=== PATIENT | male | born 1970 | race Caucasian/White ===

== ENCOUNTER 2020-11-26 00:33 | Inpatient (IN) | payer MEDICAID ==
[~2020-11-26] VITALS: Ht 182.9 cm; Wt 86.2 kg
[2020-11-26] MEDS ORDERED: LORazepam 2 MG/ML, 1ML ONE ×2 (00:55→01:05)
[2020-11-26] MEDS ORDERED: LORazepam 2 MG/ML, 1ML IVPush ONE ×2 (01:00→05:30)
[2020-11-26] MEDS ORDERED: SODIUM CHLORIDE FLUSH 10ML SYR IVF ONE (01:00)
[2020-11-26 01:20] LABS: BASOPHILS % (AUTO) 0 % (0-1); EOSINOPHILS % (AUTO) 1 % (1-7); LYMPHOCYTES % (AUTO) 24 % (22-44); MEAN CORPUSCULAR HEMOGLOBIN 33.6 pg (27.5-34.5); MEAN CORPUSCULAR HGB CONC 32.1 g/dL (33.2-36.2); MEAN PLATELET VOLUME 9.7 fL (7.4-10.4); MONOCYTES % (AUTO) 20 % (2-9); NEUTROPHILS % (AUTO) 56 % (42-75); PLATELET COUNT 228 x10^3/uL (130-400); RED BLOOD COUNT 5.04 x10^6/uL (4.38-5.82); RED CELL DISTRIBUTION WIDTH 16.5 % (9.4-14.8)
[2020-11-26 01:21] LABS: ALANINE AMINOTRANSFERASE 133 U/L (12-78); ANION GAP 27 mmol/L (5-15); CALCIUM 10.6 mg/dL (8.5-10.1); CHLORIDE 100 mmol/L (98-107); CREATININE 2.71 mg/dL (0.7-1.3)
[2020-11-26 01:23] LABS: ALKALINE PHOSPHATASE 87 U/L (45-117); BILIRUBIN,TOTAL 1.1 mg/dL (0.2-1.0); TOTAL PROTEIN 9.2 g/dL (6.4-8.2)
[2020-11-26 01:26] LABS: SALICYLATE LEVEL 4.2 mg/dL (2.8-20.0)
[2020-11-26] MEDS ORDERED: THIAMINE 100 MG in SODIUM CHLORIDE 0.9% 50 ML IVPB ONE (01:30)
--- NOTE | 2020-11-26 01:33 | NUR ---
LATE ENTRY D/T PT CARE: PT CAME IN TO ER BY FOOT, UPON ARRIVAL IN [facility] PT WAS IRRITATED AND YELLING "I NEED TO SEE A DR" PT WAS ASSISTED ON WHEELCHAIR CHECKED IN AND DIRECTED TO TRIAGE. PT TAKEN BACK TO THIS RNS ROOM DIRECTLY FROM TRIAGE, PLACED ON SPO2/BP/ECG MONITORING UPON ARRIVAL IN ROOM. PT CHANGED INTO GOWN RESTING ON GURNEY AND REPORTED TO RN THAT HE CAME INTO THE ED THIS EVENING DUE TO 3 DAYS AGO BEGINNING TO NOT FEEL WELL, REPORTING N/D AND FATIGUE WHILE HE HAD A GIRLFRIEND AT HIS HOUSE, PT STATES THEY WERE HANGING OUT AND THEN ACCORDING TO PT SHE STATED "YOURE " AND LEFT HOUSE, AFTER THAT PT BEGIN VOMITTING AND FEELING POOR. STATES HE WAS BED RIDDEN EXCEPT TO THROW UP X3DAYS. THIS CONTINUALLY GOT WORSE AND HE DECIDED TO WALK TO THE ER. PT EYES APPEAR BLOODSHOT, EXTREMELY DIAPHORETIC, PUPILS DILATED WITH SLUGGISH RESPONSES. DURING CONVERSATION, PT HAS RUSHED SPEECH AND STORY SEEMS TO JUMP AROUND. UNABLE TO COHERENTLY GET FULL STORY ACROSS. PT DENIES RECENT DRUG USE BUT STATES HE HAS NOT SLEPT IN FOUR DAYS AND IS EXTREMEL FATIGUED, REPORTS DRINKING DAILY. PT DAUGHTER ARRIVED AT ER AND SHORTLY AFTER, WHILE CAROLINE DOUGLAS WAS IN ROOM, PT HAD A SEIZURE, LASTED APRROXIMATELY 45SECONDS, PT AT THAT TIME WAS PLACED ON A NONREBREATHER MASK, AN IV WAS ESTABLISHED, LABS OBTAINED AND SENT TO LAB. PT WHEELED TO MN. NOW RESTING IN ROOM, MONITORING IN PLACE,DAUGHTER AT , [facility].
--- NOTE | 2020-11-26 01:45 | NUR ---
PT JUST SAT UP IN BED AND STATED "YOU NEED TO ORDER A FULL TOX SCREEN, SHE GAVE ME SOMETHING". RN TO STRAIGHT CATH PT
[2020-11-26 02:01] LABS: MD SCAN
[2020-11-26 02:15] LABS: MICROSCOPIC INDICATED
[2020-11-26 02:20] LABS: AMPHETAMINE SCREEN, URINE Positive (Negative); BARBITURATE SCREEN, URINE Negative (Negative); BENZODIAZEPINE SCREEN, URINE Negative (Negative); CANNABINOID SCREEN, URINE Negative (Negative); COCAINE SCREEN, URINE Negative (Negative); METHADONE SCREEN, URINE Negative (Negative); OPIATE SCREEN, URINE Negative (Negative)
--- NOTE | 2020-11-26 02:20 | NUR ---
PT SLEEPING AT THIS TIME, AND HIS O2 SATS ARE 88% ON ROOM AIR. PT PLACED ON O2 NC 2 LPM, AND O2 SATS 98%. PT AWAKENS EASILY, MILDLY GROGGY. DAUGHTER IS SITTING AT BEDSIDE.
[2020-11-26] MEDS ORDERED: SODIUM CHLORIDE 0.9% 1,000ML IVBOLUS ONE (03:00)
--- NOTE | 2020-11-26 03:34 | NUR ---
report called to erik sánchez. pt care to be transferred upon arrival to the floor. pt resting, daughter at bs, updated on poc. denies additional questions or needs. wctm.
[2020-11-26] MEDS ORDERED: OXYcodone IR 5MG TABLET PO PRN (04:00)
[2020-11-26] MEDS ORDERED: LORazepam 2 MG/ML, 1ML IV PRN ×5 (04:00)
[2020-11-26] MEDS ORDERED: LORazepam 0.5MG TABLET PO PRN (04:00)
[2020-11-26] MEDS ORDERED: POLYETHYLENE GLYCOL 17 GM PACKET PO PRN (04:00)
[2020-11-26] MEDS ORDERED: BISACODYL 10 MG SUPP PR PRN (04:00)
[2020-11-26] MEDS ORDERED: LORazepam 1MG TABLET PO PRN ×4 (04:00)
[2020-11-26] MEDS ORDERED: PROMETHAZINE 25 MG/ML, 1ML IM PRN (04:00)
[2020-11-26] MEDS ORDERED: POTASSIUM CHLORIDE 20 MEQ, MAGNESIUM SULFATE 2 GM, THIAMINE 200 MG, FOLIC ACID 1 MG in ... IV SCH (04:00)
[2020-11-26] MEDS ORDERED: hydrALAzine 20 MG/ML, 1ML IVPush PRN (04:00)
[2020-11-26] MEDS ORDERED: ACETAMINOPHEN 325 MG TABLET PO PRN (04:00)
[2020-11-26] MEDS ORDERED: ONDANSETRON 2MG/ML, 2ML IVPush PRN (04:00)
[2020-11-26] MEDS ORDERED: DOCUSATE 100 MG CAPSULE PO PRN (04:00)
[2020-11-26] MEDS ORDERED: ONDANSETRON ODT 4 MG PO PRN (04:00)
[2020-11-26] MEDS ORDERED: LORazepam 2 MG/ML, 1ML IVPush PRN (04:00)
[2020-11-26 04:07] LABS: FREE T4 (FREE THYROXINE) 1.19 ng/dL (0.76-1.46)
[2020-11-26 04:27] VITALS: BP 119/81
[2020-11-26] MEDS: ENOXAPARIN 40 MG/0.4 ML SQ SCH (05:01)
[2020-11-26] MEDS ORDERED: HALOPERIDOL 5 MG/ML IV PRN (05:30)
[2020-11-26] MEDS: THIAMINE 100 MG in SODIUM CHLORIDE 0.9% 50 ML IV SCH (06:02)
[2020-11-26] MEDS: SODIUM BICARBONATE 8.4% 100 MEQ in DEXTROSE 5% 1,000 ML IV SCH ×2 (07:08→17:22)
[2020-11-26 08:18] VITALS: BP 132/87
[2020-11-26 12:06] VITALS: BP 122/79
[2020-11-26] MEDS: FOLIC ACID 1 MG TABLET PO SCH (16:23)
[2020-11-26 20:20] VITALS: BP 118/78
[2020-11-27 02:10] VITALS: BP 105/71
[2020-11-27] MEDS: ENOXAPARIN 40 MG/0.4 ML SQ SCH (04:32)
[2020-11-27] MEDS: THIAMINE 100 MG in SODIUM CHLORIDE 0.9% 50 ML IV SCH (05:28)
[2020-11-27 06:46] VITALS: BP 137/81
[2020-11-27 06:58] LABS: BASOPHILS % (AUTO) 0 % (0-1); EOSINOPHILS % (AUTO) 1 % (1-7); LYMPHOCYTES % (AUTO) 11 % (22-44); MEAN CORPUSCULAR HGB CONC 34.3 g/dL (33.2-36.2); MEAN PLATELET VOLUME 9.3 fL (7.4-10.4); MONOCYTES % (AUTO) 10 % (2-9); NEUTROPHILS % (AUTO) 77 % (42-75); PLATELET COUNT 176 x10^3/uL (130-400); RED CELL DISTRIBUTION WIDTH 15.2 % (9.4-14.8)
[2020-11-27 07:00] LABS: MD NO
[2020-11-27 07:12] LABS: ALANINE AMINOTRANSFERASE 119 U/L (12-78); ALBUMIN 3.6 g/dL (3.4-5.0); ANION GAP 6 mmol/L (5-15); CALCIUM 8.3 mg/dL (8.5-10.1); CHLORIDE 98 mmol/L (98-107); CHOLESTEROL, TOTAL 237 mg/dL (140-239); CREATININE 0.86 mg/dL (0.7-1.3); TRIGLYCERIDES 74 mg/dL (50-200); VLDL CHOLESTEROL 15 mg/dL (0-25)
[2020-11-27 07:14] LABS: ALKALINE PHOSPHATASE 64 U/L (45-117); BILIRUBIN,TOTAL 1.1 mg/dL (0.2-1.0); HDL CHOLESTEROL (DIRECT) 109 mg/dL (40-60); TOTAL PROTEIN 6.9 g/dL (6.4-8.2)
[2020-11-27 07:50] LABS: CHOL/HDL RATIO 2.2; HDL CHOL % 46 % (26-37); LDL CHOLESTEROL,CALCULATED 113 mg/dL (54-169)
[2020-11-27] MEDS: FOLIC ACID 1 MG TABLET PO SCH (08:30)
[2020-11-27] MEDS ORDERED: POTASSIUM CHLORIDE 20 MEQ TAB.ER.PRT PO ONE (12:00)
[2020-11-27 12:24] VITALS: BP 122/75
== END 2020-11-27 14:59 | disposition home or self-care (01) | DRG 100 ==
LOC: ED 03:36 → EDIP 03:45 → 4WST 04:14 → 4EST 21:45
PROVIDERS: ADMIT Internal Medicine; ATTEND Family Medicine
PROC: 0T9B70Z Drainage of Bladder with Drainage Device, Via Natural or Artificial Opening (ICD-10-PCS; principal; 2020-11-26)
DX: R56.9 Unspecified convulsions (principal); N17.0 Acute kidney failure with tubular necrosis; E87.2 Acidosis; G93.40 Encephalopathy, unspecified; F10.139 Alcohol abuse with withdrawal, unspecified; D72.829 Elevated white blood cell count, unspecified; F15.10 Other stimulant abuse, uncomplicated; K76.0 Fatty (change of) liver, not elsewhere classified; N18.9 Chronic kidney disease, unspecified; Z91.030 Bee allergy status
CPT/HCPCS: 70450; 71045; 76700; 80053; 80061; 80143; 80179; 80307; 80320; 81001; 82962; 83036; 83735; 84100; 84439; 84443; 85025; 87086; 93005; 96361; 96365; 96366; G0378; J1650; J3411; J7070; G0480; J2060; J7030